=== PATIENT | male | born 1980 | race Caucasian/White ===

== ENCOUNTER 2017-03-21 11:12 | Emergency (ER) | payer MEDICAID ==
[~2017-03-21] VITALS: Ht 182.9 cm; Wt 113.4 kg
[2017-03-21 12:17] VITALS: BP 150/90
[2017-03-21] MEDS ORDERED: KETOROLAC TROMETH 60MG/2ML VIAL IM ONE (12:45)
== END 2017-03-21 13:23 | disposition home or self-care (01) ==
LOC: ER 11:12
DX: M72.2 Plantar fascial fibromatosis (principal)
CPT/HCPCS: 73630; 96372; 99284; J1885